=== PATIENT | male | born 1970 | race African-American/Black ===

== ENCOUNTER 2023-07-15 19:43 | Emergency (ER) | payer OTHER ==
[~2023-07-15] VITALS: Ht 180.3 cm; Wt 99.3 kg
[2023-07-16] MEDS: KETOROLAC TROMETH 60MG/2ML VIAL IM ONE (00:30)
[2023-07-16] MEDS ORDERED: KETAMINE 50mg/ML 1ml syringe IV ONE (00:45)
[2023-07-16 01:00] VITALS: PULSE 68; RESP 10; O2SAT 96
[2023-07-16] MEDS: ETOMIDATE (2MG/ML) 20ML VIAL IV ONE (01:15)
[2023-07-16] MEDS: LIDOCAINE 5% TOPICAL PATCH TOP ONE (02:17)
[2023-07-16 02:47] VITALS: BP 119/71; PULSE 68; RESP 11; TEMP 98.2; O2SAT 95
== END 2023-07-16 03:38 | disposition home or self-care (01) ==
LOC: ER 19:43
DX: S43.084A Other dislocation of right shoulder joint, initial encounter (principal); W11.XXXA Fall on and from ladder, initial encounter; Y93.89 Activity, other specified; Y92.89 Other specified places as the place of occurrence of the external cause; Y99.8 Other external cause status
CPT/HCPCS: 23650; 73020; 73030; 96372; 99152; 99285; J1885